=== PATIENT | female | born 1965 | race Caucasian/White ===

== ENCOUNTER 2023-04-27 20:02 | Emergency (ER) | payer OTHER, SELFPAY ==
[2023-04-27 20:19] VITALS: BP 133/90; PULSE 85; RESP 16; TEMP 36.8; O2SAT 98
--- NOTE | 2023-04-27 20:42 | ED.GENADULT ---
HPI - General Adult General Chief complaint: Fever Stated complaint: fever Time Seen by Provider: 04/27/23 20:30 Source: patient Mode of arrival: ambulatory Limitations: no limitations History of Present Illness HPI narrative: This is a 57-year-old female who presents to the ED with chief complaint of dysuria for the past several days. Patient was seen at [facility] urgent care last night and was given prescription for cefdinir. She is returning to the ER tonight because she had a temperature of 101 ?F today at home. She states she took Tylenol which helped with the fever. Upon triage her temperature is 98.3 ?F. Denies any further complaints. Denies nausea, vomiting, chest pain, shortness of breath, rhinorrhea, congestion, sore throat, abdominal pain, vaginal symptoms. Related Data Allergies Allergy/AdvReac Type Severity Reaction Status Date / Time No Known Allergies Allergy Unverified 11/22/21 13:57 Exam Narrative: GENERAL: Well-appearing, well-nourished, and in no acute distress. HEAD: Normocephalic, atraumatic. EYES: PERRLA and EOMI. ENT: Nares clear, no rhinorrhea or epistaxis. Mucous membranes moist. Oropharynx without tonsillar hypertrophy exudate or other lesions. NECK: Supple. No adenopathy or masses. CHEST: No respiratory distress. Clear to auscultation. No wheezes rales or rhonchi HEART: Regular rate and rhythm. No murmur heard. Normal peripheral pulses. ABDOMEN: Negative flank tenderness bilaterally. Soft, nontender, nondistended, normal active bowel sounds. MSK: Normal range of motion. No edema. SKIN: Warm, dry, no rash. NEURO: Alert and oriented x3. No focal deficits. PSYCH: Normal mood and affect. Course Vital Signs Vital signs: Vital Signs Temperature 98.3 F 04/27/23 20:19 Pulse Rate 85 04/27/23 20:19 Respiratory Rate 16 04/27/23 20:19 Blood Pressure 133/90 04/27/23 20:19 Pulse Oximetry 98 04/27/23 20:19 Oxygen Delivery Room Air 04/27/23 20:19 Temperature 98.3 F 04/27/23 20:19 Pulse Rate 80 04/27/23 22:11 Respiratory Rate 18 04/27/23 22:11 Blood Pressure 134/91 H 04/27/23 22:11 Pulse Oximetry 99 04/27/23 22:11 Oxygen Delivery Room Air 04/27/23 20:19 Medical Decision Making MDM Narrative Medical decision making narrative: This is a 57-year-old female who presents to the ED with chief complaint of UTI symptoms and fever. Vitals are normal. She is only taken a couple of doses of her cefdinir for this recently onset UTI. Exam is benign. No flank tenderness. She is afebrile. Not having any nausea or vomiting. Urinalysis was obtained and shows 1+ blood and leuks. I prescribed Macrobid so we can have a first-line antibiotic on board along with the cefdinir. She has pending culture with her original urinalysis at [facility] and today. She will be called with those results. She is stable for discharge with simple UTI. We discussed return precautions including uncontrollable fevers, vomiting or new pain. Supportive measures for home discussed. She is agreeable with the plan for discharge and follow-up with PCP. Vital Signs Vital Signs: Vital Signs Temperature 98.3 F 04/27/23 20:19 Pulse Rate 85 04/27/23 20:19 Respiratory Rate 16 04/27/23 20:19 Blood Pressure 133/90 04/27/23 20:19 Pulse Oximetry 98 04/27/23 20:19 Oxygen Delivery Room Air 04/27/23 20:19 Temperature 98.3 F 04/27/23 20:19 Pulse Rate 80 04/27/23 22:11 Respiratory Rate 18 04/27/23 22:11 Blood Pressure 134/91 H 04/27/23 22:11 Pulse Oximetry 99 04/27/23 22:11 Oxygen Delivery Room Air 04/27/23 20:19 Lab Data Labs: Lab Results 04/27/23 Range/Units 21:00 Urine Color Yellow (Yellow) Urine Appearance Clear (Clear) Urine pH 6.0 (5.0-9.0) Ur Specific [place] 1.010 (1.001-1.035) Urine Protein Negative (Negative) mg/dL Urine Glucose (UA) Negative (Negative) mg/dL Urine Ketones Negative (Negative) mg/dL Ur Blood
[2023-04-27 21:54] LABS: Appearance Urine Clear (Clear); Bilirubin Urine Negative (Negative); Blood Urine 1+ (Negative); Color Urine Yellow (Yellow); Glucose Urine UA Negative (Negative); Ketones Urine Negative (Negative); Leukocyte Esterase Ur 1+ LEU/UL (Negative); Nitrate Urine Negative (Negative); Protein Urine Negative (Negative); Urobilinogen Urine 0.2 mg/dL (<2.0)
[2023-04-27 22:00] VITALS: BP 128/83; PULSE 79; RESP 16; O2SAT 98
[2023-04-27 22:07] LABS: WBC Urine 21-50 /hpf (0-3)
[2023-04-27 22:08] LABS: RBC Urine 0-2 /hpf (0-2); Squamous Epithelial Cell Urine Few /hpf (Few)
[2023-04-27 22:09] LABS: Add Urine Microscopic? YES; Bacteria Urine Trace /hpf
[2023-04-27 22:11] VITALS: BP 134/91; PULSE 80; RESP 18; O2SAT 99
== END 2023-04-27 22:18 | disposition home or self-care (01) ==
PROVIDERS: Emergency Provider Physician Assistant; PCP Nurse Practitioner Family
DX: N39.0 Urinary tract infection, site not specified (principal)
CPT/HCPCS: 81001; 99283

== ENCOUNTER 2024-03-03 07:02 | Emergency (ER) | payer OTHER, SELFPAY ==
--- NOTE | ~2024-03-03 | US_ITS ---
EXAMINATION: US abdomen limited DATE: 03/03/2024 09:50 INDICATION: Upper abdominal pain. TECHNIQUE: Multiple grayscale and Doppler ultrasound images of the abdomen were obtained. COMPARISON: CT abdomen and pelvis 07/07/2005 FINDINGS: The visualized portions of the head and body of the pancreas are normal. The visualized por tion of the liver is normal without focal lesion. No liver surface nodularity. There is normal flow i n main portal vein. The gallbladder is normal in size and contains sludge. No gallstones or gallbladd er wall thickening. There is no sonographic Wolfe's sign. The common duct is normal and measures 4 m m. IMPRESSION: 1. No etiology for the patient's symptoms. Reviewed, dictated and finalized at location A.
--- NOTE | ~2024-03-03 | XR_ITS ---
EXAMINATION: XR chest 1V portable DATE: 03/03/2024 08:55 INDICATION: Upper abdominal pain TECHNIQUE: frontal view of the chest was obtained. COMPARISON: Chest radiograph dated 06/23/10 FINDINGS: The lungs remain clear with no focal airspace opacities, pulmonary edema, pleural effusion or pneumot horax. The cardiomediastinal silhouette is normal. Visualized bones and soft tissues are unremarkable . IMPRESSION: 1. No acute cardiopulmonary disease. Reviewed, dictated and finalized at location B.
[2024-03-03 07:16] VITALS: BP 122/70; PULSE 72; RESP 18; TEMP 36.4; O2SAT 100
[2024-03-03 07:50] LABS: Basophils Percent Auto 0.3 % (0.2-1.2); Eosinophils Absolute Auto 0.2 K/mm3 (0-0.3); Eosinophils Percent Auto 1.5 % (0-4.4); Hemoglobin 13.9 g/dL (12.0-15.0); Immature Granulocyte Absolute 0.05 K/mm3 (0.00-0.031); Immature Granulocyte Percent A 0.4 % (0-0.5); Lymphocytes Absolute Auto 1.41 K/mm3 (0.9-3.2); Lymphocytes Percent Auto 11.2 % (18.3-44.2); Mean Corpuscular HGB Conc 33.1 g/dl (32-36); Mean Corpuscular Hemoglobin 30.4 pg (26-34); Mean Corpuscular Volume 91.9 fl (80-100); Mean Platelet Volume 11.1 fl (7.4-10.4); Monocytes Absolute Auto 0.8 K/mm3 (0.1-0.6); Monocytes Percent Auto 6.3 % (2.6-8.5); Neutrophils Absolute Auto 10.2 K/mm3 (1.3-6.7); Neutrophils Percent Auto 80.3 % (45.5-73.1); Platelet Count Result 253 k/mm3 (150-375); Red Blood Count 4.57 M/mm3 (4.2-5.4); Red Cell Distribution Width 13.8 % (11.5-14.5); White Blood Count 12.6 K/mm3 (4.5-10.0)
[2024-03-03 08:01] LABS: Alanine Aminotransferase 35 U/L (6-35); Albumin Level 4.4 g/dL (3.5-5.1); Alkaline Phosphatase 59 U/L (38-126); Anion Gap 9 mmol/L (4-12); Aspartate Amino Transferase 53 U/L (14-36); Bilirubin,Total 0.6 mg/dL (0.2-1.3); Blood Urea Nitrogen 14 mg/dL (7-17); Calcium 9.7 mg/dL (8.4-10.2); Carbon Dioxide 23 mmol/L (22-30); Chloride 108 mmol/L (98-107); Estimated CRCL calculation 79 ml/min; Estimated Glomerular Filt Rate > 60; Glucose 132 mg/dL (65-110); Lipase 156 U/L (23-300); Potassium 3.4 mmol/L (3.4-5.0); Sodium 140 mmol/L (137-145)
--- NOTE | 2024-03-03 08:17 | ECG_ITS ---
SEE SCANNED COPY FOR CONFIRMED REPORT MTDD
--- NOTE | 2024-03-03 08:31 | ED.ABDPAIN ---
HPI - Abdominal Pain General Chief Complaint: Abdominal Pain Stated Complaint: abd pain Time Seen by Provider: 03/03/24 07:36 History of Present Illness HPI narrative: 58-year-old female presented to the emergency department for evaluation of upper abdominal pain associated nausea without vomiting. Patient reports that symptoms started last night. Patient denies any radiation of the pain to her chest neck or back. Patient did take some antacids last night and states that they did not help immediately but upon arrival emergency department patient states that all her symptoms have resolved. Patient denies any prior history of gallbladder disease and denies any prior history coronary disease. Related Data Home Medications Medication Instructions Recorded Confirmed fluoxetine 40 mg capsule 40 mg PO DAILY 06/03/23 07/16/23 levothyroxine 125 mcg tablet 125 mcg PO DAILY 06/03/23 07/16/23 Allergies Allergy/AdvReac Type Severity Reaction Status Date / Time No Known Allergies Allergy Verified 07/16/23 14:25 Review of Systems Review of Systems: All systems reviewed & are unremarkable except as noted in HPI and below PMFSH Social History Social History (System 11/22/21 @ 13:57 by Geovany Rosales) Years smoked: 4 Smoking status: Former smoker Alcohol intake: current Living arrangements: with family Spiritual care concerns: No Exam Narrative: APPEARANCE: Well appearing, no pain, no distress, well-nourished. HEAD: normocephalic, atraumatic. EYES: PERRLA/EOMI, conjunctivae clear. NOSE: Normal no drainage EARS:TMS clear with good light reflex. THROAT: Pharynx clear, no exudate. NECK: Supple. No adenopathy, no masses. RESPIRATORY: Airway patent, respirations nonlabored. Clear to auscultation bilaterally, no rales, rhonchi, wheezing. CARDIOVASCULAR: Regular rate and rhythm without murmurs rubs or gallops. ABDOMINAL: Soft, nontender, nondistended, normal bowel sounds MUSCULOSKELETAL: Moves all extremities. Strength/ROM intact, No edema, No calf tenderness. NEURO: Alert. Cranial nerves II through XII intact. Grossly intact SKIN: Warm, dry. Normal Color Course Course Emergency Course: Patient was pain-free in the emergency department Vital Signs Vital signs: Vital Signs Temperature 97.6 F 03/03/24 07:16 Pulse Rate 72 03/03/24 07:16 Respiratory Rate 18 03/03/24 07:16 Blood Pressure 122/70 03/03/24 07:16 Pulse Oximetry 100 03/03/24 07:16 Oxygen Delivery Room Air 03/03/24 07:16 Temperature 97.6 F 03/03/24 07:16 Pulse Rate 77 03/03/24 11:00 Respiratory Rate 16 03/03/24 11:00 Blood Pressure 122/73 03/03/24 11:00 Pulse Oximetry 98 03/03/24 11:00 Oxygen Delivery Room Air 03/03/24 07:16 MDM - Abdominal Pain MDM Narrative Medical decision making narrative: 58-year-old female presents emergency department for evaluation upper abdominal pain. Patient reports pain is resolved at time of examination patient has no tenderness to palpation. Patient is afebrile with a minor leukocytosis of 12.6 stable hemoglobin, mild elevation of AST but ALT alk-phos lipase and T bili are normal. Patient was treated with IV Protonix. EKG shows no evidence of acute STEMI. Patient did have mild elevation of her AST with no elevation of alk-phos ALT T bili or lipase. Ultrasound was ordered for the possibility underlying gallbladder etiology an ultrasound was negative. Patient was encouraged to follow a bland diet and was also encouraged to take Prilosec for the next 14 days. Patient also encouraged to have follow-up with GI Differential Diagnosis Differential diagnosis: Likely abdominal pain, calculus of kidney, constipation and gastroenteritis Lab Data Attestation: I reviewed the patient's lab results. 03/03/24 07:43 03/03/24 07:43 Labs: Lab Results 03/03/24 03/03/24 Range/Units 07:43 08:58 WBC 12.6 H (4.5-10.0) K/mm3 RBC 4.57 (4.2-5.4) M
[2024-03-03] MEDS: PANTOPRAZOLE SODIUM IV 40 MG VIAL IV PUSH (08:52)
[2024-03-03 09:00] VITALS: BP 133/82; PULSE 76; RESP 16; O2SAT 100
[2024-03-03 09:09] LABS: Appearance Urine Clear (Clear); Bilirubin Urine Negative (Negative); Blood Urine Negative (Negative); Color Urine Yellow (Yellow); Glucose Urine UA Negative (Negative); Ketones Urine Negative (Negative); Leukocyte Esterase Ur Negative LEU/UL (Negative); Nitrate Urine Negative (Negative); Protein Urine Negative (Negative); Specific Grav Ur 1.021 (1.001-1.035); Urobilinogen Urine 0.2 mg/dL (<2.0)
[2024-03-03 09:23] LABS: Troponin I < 0.012 ng/mL (0.000-0.034)
[2024-03-03 09:52] LABS: Add Urine Microscopic? NO
[2024-03-03 11:00] VITALS: BP 122/73; PULSE 77; RESP 16; O2SAT 98
== END 2024-03-03 11:03 | disposition home or self-care (01) ==
PROVIDERS: Emergency Provider Emergency Medicine; PCP Nurse Practitioner Family
DX: R10.10 Upper abdominal pain, unspecified (principal); Z87.891 Personal history of nicotine dependence
CPT/HCPCS: 36415; 71045; 76705; 80053; 81003; 83690; 84484; 85025; 93005; 96374; 99284; C9113

== ENCOUNTER 2024-11-19 01:53 | Day surgery (SDC) | payer OTHER, SELFPAY ==
[2024-11-06 11:19] VITALS: BMI 36.6
--- OUTSIDE RECORDS SUMMARY | 2024-11-19 01:56 | XMS_ITS | Data Portability ---
Author Organization [facility], Main Office Address [address] [place] [address] Assessment Encounter Date Assessment Date Assessment LastModified by Organization Details LastModified Time 05/01/2023 05/01/2023 D/w pt about her findings and further plan of care. Recent ED records reviewed. Will send urine for C&S. Will refer pt to Uro. Meds as directed. Very good liquid and cranberry juice intake explained. OTC pain meds as directed prn with food. Educated about alarming symptoms to monitor at home and call us back or get checked in ED. F/u with PCP as directed. [email or web address] Not available 05/01/2023 13:10:43 06/27/2023 06/27/2023 D/w pt about her findings and further plan of care. Meds as directed. OTC symptomatic Rx explained in detail. Very good liquid intake explained. Proper hand hygiene explained. Educated about alarming symptoms to monitor at home and call us back Or get checked in ED if any concerns. F/u as directed. [email or web address] Not available 06/27/2023 11:14:06 08/18/2024 08/18/2024 Declines annual labs Flu shot: 05/2024 COVID vaccines: x3 Tdap: 05/2024 Mammogram: ordered Colonoscopy: 9 year ago, mother has colon cancer [email or web address] Not available 08/18/2024 15:08:02 Plan of Treatment Reminders Order Date Submit Date Provider Last Modified By Organization Details Last Modified Time Details Appointments None recorded. Lab lipid panel, serum 2022 023 [facility], [address] [place], [address], 3 08:41:33 CBC w/ auto diff [address], [address] [place], [address], 3 08:41:33 CMP, serum or plasma [address], [address] [place], [address], 3 08:41:33 HbA1c (hemoglobin A1c), blood [address], [address] [place], [address], 3 08:41:34 TSH, serum, reflex free T4 [address], [address] [place], [address], 3 08:41:33 culture, urine 2022 023 [facility], [address] [place], [address], 3 08:51:27 TSH, serum, reflex free T4 [address] (Lab), [address] [place], [address], 3 08:15:30 lipid panel, serum [address] (Lab), [address] [place], [address], 3 08:15:40 rapid flu (A+B) 2022 023 [facility], [address] [place] [address], [place], [address], 3 17:47:23 rapid strep group A, throat [address] [facility], [address] [facility], [place], [address], 3 17:46:49 HbA1c (hemoglobin A1c), blood 2023 024 [employer] [facility], [address], [place], [address], 4 07:35:07 TSH + free T4, serum 2023 024 [employer] [facility], [address], [place], [address], 4 07:35:03 T3, free, serum or plasma 2023 024 [employer] [facility], [address], [place], [address], 4 07:35:06 Referral gastroenter ologist referral - colonoscopy needed. Last in 2014. Mother +colon cancer. 2022 023 [email or web address] Omi Petersen MD, [address] [facility] [address], [address], [place], [address], 3 20:32:[address] referral - Would like full body skin check. Has lesion right shoulder and posterior right knee, too. 2022 023 [email or web address] [facility], [address], [place], [address], 3 09:52:40 urologist referral 2022 023 [email or web address] Vaughn Inman MD, [address] [facility], [facility] [address], [place], [address], 3 15:54:55 gastroenter ologist referral - Please call patient to schedule an appointment . Thank you. [email or web address] [place] [address] [facility], [address], [address], [place], [address], 4 08:52:23 Procedures None recorded. Surgeries None recorded. Imaging MAMMO, screening, bilateral 2022 023 [email or web address] 256 Not available 3 09:42:14 MAMMO, screening, digital, bilateral - *Please call pt to schedule* 2023 024 [email or web address] 256 [facility], [address], [place], [address], 4 09:38:18 Medication Orders phenazopyri dine 200 mg tablet 2022 023 [email or web address] [facility] [id number], [address], 3 11:16:42 Macrobid 100 mg capsule 2022 023 [email or web address] [facility] [id number], [address], 3 08:39:04 azithromyci n 250 mg tablet 2022 023 [facility] [id number], [address], 4 16:11:48 Patient TargetsNo targets recorded. Patient Instructions Encounter Date Encounter Id Patient Instructions Last Modified By Organization Details Last Modified Time 03/20/2023 [id number] mo fu labs, weight, skin lesion, lipid, thyroid, anxiety. 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 Has lesion right shoulder and posterior right knee, too. Referring Physician: Kristen Olivarez, [facility], Encounter Date: 03/20/2023 Help Aid Referral for Family history of cancer of colon colonoscopy needed. Last in 2014. Mother +colon cancer. Referring Physician: Kristen Olivarez, [facility], Encounter Date: 03/20/2023 Urologist Referral for Urina ry incontinence Referring Physician: Manfred Burch [facility], Encounter Date: 05/01/2023 Help Aid Referral for Screening for malignant neoplasm of colon Please call patient to schedule an appointment. Thank you. Referring Physician: Aracelis Waters, [facility], Encounter Date: 08/18/2024 Results Created Date Observation Date Name Description Value Unit Range Abnormal Flag Note LastModifiedBy Organization Detail LastModifiedTime 06/11/2006/12/2023 LIPID PANEL , STAND TURNER cholesterol, total 229 mg/dL <200 high Not Available [employer] [facility] [address] [place], [place] [address], [address], 06/12/2023 10:42:25 06/11/2006/12/2023 LIPID PANEL , STAND TURNER HDL cholesterol 63 mg/dL > or = 50 normal Not Available [employer] [address] [place], [address], 06/12/2023 10:42:25 06/11/20 23 06/12/2023 LIPID PANEL , STAND TURNER triglyceride s 160 mg/dL <150 high Not Available [facility] [address] [place], [address], 06/12/2023 10:42:25 06/11/2006/12/2023 LIPID PANEL , STAND TURNER LDL-choleste rol 136 mg/dL _(ashley c) high Refer ence range : <100 Barron able range <100 mg/dL for prima ry preve ntion ; <70 mg/dL for patie nts with CHD or diabe tic patie nts with > or = 2 CHD risk facto rs. LDL-C is now calcu lated using the [facility] n-Hop kins mariela harris n, which is a valid ated novel marilu liz accur acy than the Fried ulisses equat ion in the estim ation of LDL-C . Ivanna brock SS et al. CAM. 2013; 310(1 9): 2061- 2068 (http ://ed ucati on.Qu Casey Podotrees. com/f aq/FA Q164) Not Available [facility] [address] [place], [address], 06/12/2023 10:42:25 06/11/2006/12/2023 LIPID PANEL , STAND TURNER chol/HDLC ratio 3.6 (calc ) <5.0 normal Not Available [facility] [address], [place], [address], 06/12/2023 10:42:25 06/11/20 23 06/12/2023 LIPID PANEL , STAND TURNER non HDL cholesterol 166 mg/dL _(ashley c) <130 high For patie nts with diabe lázaro plus 1 major ASCVD risk facto r, treat ing to a non-H DL-C goal of <100 mg/dL (LDL- C of <70 mg/dL ) is consi dered a thera peuti c optio n. Not Available [facility] [address] [place], [address], 06/12/2023 10:42:25 06/11/2006/12/2023 COMPR EHENS MANJIT METAB OLIC PANEL glucose 104 mg/dL 65-99 high Fasti ng refer ence inter hamlet For someo ne witho ut known diabe lázaro, a gluco se value betwe en 100 and 125 mg/dL is consi stent with predi abete s and shoul d be confi rmed with a follo w-up test. Not Available [facility] [address] [place], [address], 06/12/2023 10:42:26 06/11/20 23 06/12/2023 COMPR EHENS MANJIT METAB OLIC PANEL urea nitrogen (BUN) 16 mg/dL 7-25 normal Not Available [address], [address], 06/12/2023 10:42:26 06/11/20 23 06/12/2023 COMPR EHENS MANJIT METAB OLIC PANEL creatinine 0.79 mg/dL 0.50-1 .03 normal Not Available [address], [address], 06/12/2023 10:42:26 06/11/20 23 06/12/2023 COMPR EHENS MANJIT METAB OLIC PANEL eGFR 87 mL/mi n/1.7 3m2 > or = 60 normal Not Available [address], [address], 06/12/2023 10:42:26 06/11/20 23 06/12/2023 COMPR EHENS MANJIT METAB OLIC PANEL BUN/creatini ne ratio SEE NOTE: (calc ) 6-22 Not Repor bg: BUN and Creat inine are withi n refer ence range . Not Available [address], [address], 06/12/2023 10:42:26 06/11/20 23 06/12/2023 COMPR EHENS MANJIT METAB OLIC PANEL sodium 138 mmol/ L 135-14 6 normal Not Available [address] [place], [address], 06/12/2023 10:42:26 06/11/20 23 06/12/2023 COMPR EHENS MANJIT METAB OLIC PANEL potassium 4.3 mmol/ L 3.5-5. 3 normal Not Available [address] [place], [address], 06/12/2023 10:42:26 06/11/20 23 06/12/2023 COMPR EHENS MANJIT METAB OLIC PANEL chloride 105 mmol/ L 98-110 normal Not Available [address], [address], 06/12/2023 10:42:26 06/11/20 23 06/12/2023 COMPR EHENS MANJIT METAB OLIC PANEL carbon dioxide 23 mmol/ L 20-32 normal Not Available [address], [address], 06/12/2023 10:42:26 06/11/20 23 06/12/2023 COMPR EHENS MANJIT METAB OLIC PANEL calcium 9.4 mg/dL 8.6-10 .4 normal Not Available [address], [address], 06/12/2023 10:42:26 06/11/20 23 06/12/2023 COMPR EHENS MANJIT METAB OLIC PANEL protein, total 7.1 g/dL 6.1-8. 1 normal Not Available [address], [address], 06/12/2023 10:42:26 06/11/20 23 06/12/2023 COMPR EHENS MANJIT METAB OLIC PANEL albumin 4.4 g/dL 3.6-5. 1 normal Not Available [address], [address], 06/12/2023 10:42:26 06/11/20 23 06/12/2023 COMPR EHENS MANJIT METAB OLIC PANEL globulin 2.7 g/dL_ (calc ) 1.9-3. 7 normal Not Available [address], [address], 06/12/2023 10:42:26 06/11/20 23 06/12/2023 COMPR EHENS MANJIT METAB OLIC PANEL albumin/glob ulin ratio 1.6 (calc ) 1.0-2. 5 normal Not Available [address], [address], 06/12/2023 10:42:26 06/11/2006/12/2023 COMPR EHENS MANJIT METAB OLIC PANEL bilirubin, total 0.5 mg/dL 0.2-1. 2 normal Not Available [address], [address], 06/12/2023 10:42:26 06/11/20 23 06/12/2023 COMPR EHENS MANJIT METAB OLIC PANEL alkaline phosphatase 61 U/L 37-153 normal Not Available [facility] [employer] [address], [address], 06/12/2023 10:42:26 06/11/20 23 06/12/2023 COMPR EHENS MANJIT METAB OLIC PANEL AST 17 U/L 10-35 normal Not Available [address], [address], 06/12/2023 10:42:26 06/11/20 23 06/12/2023 COMPR EHENS MANJIT METAB OLIC PANEL ALT 23 U/L 6-29 normal Not Available [address], [address], 06/12/2023 10:42:26 06/11/20 23 06/12/2023 TSH TSH 0.29 mIU/L 0.40-4 .50 low Not Available [address], [address], 06/12/2023 10:42:27 06/11/2006/12/2023 HEMOG LOBIN A1C hemoglobin A1C 5.7 %_of_ total _HGB <5.7 high For fallon ulloa ut known diabe lázaro, a hemog lobin A1c value betwe en 5.7% and 6.4% is consi stent with predi abete s and shoul d be confi rmed with a follo w-up test. For someo ne with known diabe lázaro, a value <7% indic ates that their diabe lázaro is well contr olled . A1c targe ts shoul d be indiv idual ized based on durat ion of diabe lázaro, age, comor bid condi tions , and other consi derat ions. This assay resul t is consi stent with an incre ased risk of diabe lázaro. Curre ntly, no conse nsus exist s regar ding use of hemog lobin A1c for diagn osis of diabe lázaro for child ayesha. Not Available [facility] [address] [place], [address], 06/12/2023 10:42:27 07/01/20 23 07/01/2023 rapid strep group A, throa t STREP A negati ve Not Available [address], [address], 06/27/2023 11:16:14 07/01/20 23 07/01/2023 rapid flu (A+B) Flu A negati ve Not Available [address], [address], 06/27/2023 11:16:25 07/01/20 23 07/01/2023 rapid flu (A+B) Flu B negati ve Not Available [address], [address], 06/27/2023 11:16:25 11/08/19 24 11/09/2023 TSH W/REF DEB TO FT4 TSH w/reflex to FT4 18.80 mIU/L 0.40-4 .50 high Not Available [facility] [address] [place], [address], 11/09/2023 06:00:12 11/08/19 24 11/09/2023 T4, FREE T4, free 0.8 NG/dL 0.8-1. 8 normal Not Available [address], [address], 11/09/2023 06:00:14 08/20/2008/21/2024 TSH+F REE T4 TSH 13.99 mIU/L 0.40-4 .50 high Not Available [facility] [address], [address], 08/21/2024 07:35:03 08/20/20 24 08/21/2024 TSH+F REE T4 T4, free 1.3 NG/dL 0.8-1. 8 normal Not Available [facility] [address], [address], 08/21/2024 07:35:03 08/20/20 24 08/21/2024 T3, FREE T3, free 2.9 pg/mL 2.3-4. 2 normal Not Available [facility] [address], [address], 08/21/2024 07:35:06 08/20/2008/21/2024 HEMOG LOBIN A1C hemoglobin A1C 5.9 %_of_ total _HGB <5.7 high For someo ne witho ut known diabe lázaro, a hemog lobin A1c value betwe en 5.7% and 6.4% is consi stent with predi abete s and shoul d be confi rmed with a follo w-up test. For someo ne with known diabe lázaro, a value <7% indic ates that their diabe lázaro is well contr olled . A1c targe ts shoul d be indiv idual ized based on durat ion of diabe lázaro, age, comor bid condi tions , and other consi derat ions. This assay resul t is consi stent with an incre ased risk of diabe lázaro. Curre ntly, no conse nsus exist s regar ding use of hemog lobin A1c for diagn osis of diabe lázaro for child ayesha. Not Available [facility] [address] [place], [address], 08/21/2024 07:35:07 08/08/20 23 08/01/2023 lipid panel , serum No observ ation record ed. [facility] [address], [place], [address], 08/16/2023 08:15:39 Result Notes None recorded. Problems Name Problem SNOMED Code Status Onset Date Resolution Date Notes Provider Name and Address Organization Details Recorded Time Amenorrhea 32436284 Active Not Available [facility] 3 01:25:53 Acute sinusitis 58629520 Active Not Available [facility] 3 01:25:53 Heartburn 08095401 Active 2019 Not Available [facility] 3 01:25:53 Anxiety disorder 794021081 Active 2019 Not Available [facility] 3 01:25:53 Plantar fasciitis 571643654 Active 2017 Not Available [facility] 3 01:25:53 Mixed anxiety and depressive disorder 524536384 Active 2017 Not Available [facility] 3 01:25:53 Atopic dermatitis 89991857 Active 2018 Not Available [employer] 3 01:25:53 Headache 51383659 Active Not Available [facility] 3 01:25:53 Anemia 895957435 Active 2019 Not Available [facility] 3 01:25:53 History of anemia 784746586 Active 2017 Not Available [facility] 3 01:25:54 Depressive disorder 57905104 Active Not Available [facility] 3 01:25:54 Arthritis 4760598 Active 2019 Not Available [facility] 3 01:25:54 Osteoarthriti s 395332583 Active 2018 Not Available [facility] 3 01:25:54 Hypothyroidis m 63202437 Active Not Available [facility] 3 01:25:54 Obese 300419028 Active 2017 Not Available [facility] 3 01:25:54 Bunion 365329425 Active 2019 Not Available [facility] 3 01:25:54 Anxiety 08826268 Active Not Available [facility] 3 01:25:54 Hyperlipidemi a 60112800 Active 2021 Not Available [facility] 3 01:25:55 Sleep apnea 60344441 Active 2021 Not Available [facility] 3 01:25:55 Fatigue 81400590 Active 2017 Not Available [facility] 3 01:25:55 Skin lesion 67837306 Active 2022 Kristen Olivarez NP [address], [address], [place], [address] , [email or web address] [facility] 3 08:35:07 Urinary tract infectious disease 65599118 Active 2022 Manfred Burch MD [address], [address], [place], [address] , [employer] [facility] 3 12:27:43 Urinary incontinence 161438492 Active 2022 Manfred Burch MD [address], [address], [place], [address] , [employer] [facility] 3 12:40:10 Obesity 805725093 Active 2022 Manfred Burch MD [address], [address], [place], [address] , [employer] [facility] 3 13:10:18 Candidiasis of skin 59125515 Active 2022 Kristen Olivarez NP [address], [address], [place], [address] , [email or web address] [facility] 3 16:28:50 Candidiasis of vagina 56807797 Active 2022 Kritsen Olivarez NP [address], [address], [place], [address] , [facility] 3 16:28:57 Vaginal irritation 526626126 Active 2022 Kristen Olivarez NP [address] [facility], [place] [address], [place], [address] , [facility] 3 08:39:14 Sore throat 692099324 Active 2022 Manfred Burch MD [address] [facility], [address], [address] , [facility] 3 11:14:28 Bronchitis 07448144 Active 2022 Manfred Burch MD [address] [facility], [place] [address], [place], [address] , [facility] 3 11:14:42 Nasal congestion 74560721 Active 2022 Manfred Burch MD [address], [address] , [facility] 3 11:16:19 Prediabetes 225125821 Active 2023 AMANDA Sharp [address] [facility], [address], [address] , [facility] [employer] [facility] 4 15:08:41 Notes:allergies parathyroid disease thyroid disease Problem Notes None recorded. Procedures Surgical History Date Name Laterality Status Provider Name and Address Organization Details Recorded Time 8 Exc h-f-nk-sp b9+bhavna 1.1-2 completed Not Available [facility] 12/19/2022 01:12:49 completed Not Available [facility] 0 12/19/2022 01:12:49 Hernia Repair completed Not Available [facility] 12/19/2022 01:12:49 Hernia Repair completed Not Available [facility] 12/19/2022 01:12:49 Imaging Results Imaging Date Name Status LastModified by [facility] Details LastModified Time 08/01/2023 lipid panel, serum completed [facility] 2 [facility] [address], [place], [address], 08/16/2023 08:15:39 Procedure Notes None recorded. Medical Equipment None Reported. Allergies No known drug allergies Medications Name Sig Start Date Stop Date Status Note LastModified by Organization Details LastModified Time fluoxetin e 40 mg capsule TAKE 1 CAPSULE BY MOUTH EVERY DAY active Not Available Not Available No t Available cefazolin 1 gram solution for injection Take 1 g by injectio n route for 1 day. 07/03 completed Not Available Not Available Not Available triamcino lone acetonide 0.5 % topical cream APPLY A THIN LAYER TO THE AFFECTED AREA(S) on foot BY TOPICAL ROUTE NIGHTLY for 7-10 days active Not Available Not Available No t Available azithromy ashley 250 mg tablet TAKE 2 TABLETS BY MOUTH TODAY, THEN TAKE 1 TABLET DAILY FOR 4 DAYS 08/12 completed Not Available Not Available Not Available fluconazo le 150 mg tablet TAKE 1 TABLET BY MOUTH EVERY DAY ONE DOSE 08/12 completed Not Available Not Available Not Available valacyclo vir 1 gram tablet Take 1 tablet 3 times a day by oral route. active Not Available Not Available No t Available phenazopy ridine 200 mg tablet TAKE 1 TABLET BY MOUTH EVERY 8 HOURS NEEDED FOR 7 DAYS 06/27 completed Not Available Not Available Not Available ciproflox acin 500 mg tablet TAKE 1 TABLET BY MOUTH TWICE A DAY FOR 7 DAYS 08/12 completed Not Available Not Available Not Available sulfameth oxazole 800 mg-trimet hoprim 160 mg tablet Take 1 tablet every 12 hours by oral route for 10 days. 07/03 completed Not Available Not Available Not Available levothyro xine 75 mcg tablet TAKE 1 TABLET BY MOUTH EVERY DAY active Not Available Not Available No t Available levothyro xine 100 mcg tablet TAKE ONE TABLET BY MOUTH ONE TIME DAILY 02/10 completed Not Available Not Available Not Available alprazola m 0.25 mg tablet Take 1 tablet 3 times a day by oral route as directed for 30 days. 11/05 completed PRN Not Available Not Available Not Available levothyro xine 125 mcg tablet TAKE 1 TABLET BY MOUTH EVERY DAY 2023 active Not Available Not Available Not Avai lable Synthroid 50 mcg tablet 06/29 completed Not Available Not Available Not Available Cheratuss in AC 10 mg-100 mg/5 mL oral liquid 06/29 completed Not Available Not Available Not Available ondansetr on 4 mg disintegr ating tablet DISSOLVE 1 TABLET BY MOUTH EVERY 8 HOURS NEEDED FOR NAUSEA AND VOMITING 08/18 completed Not Available Not Available Not Available cefdinir 300 mg capsule TAKE 1 CAPSULE BY MOUTH 2 TIMES A DAY FOR 5 DAYS. 05/01 completed Not Available Not Available Not Available fluoxetin e 20 mg capsule 1 cap po daily 02/09 completed Not Available Not Available Not Available levothyro xine 112 mcg tablet TAKE 1 TABLETBY MOUTH EVERY DAY IN THE MORNING 08/21 completed Not Available Not Available Not Available amoxicill in 875 mg-potass ium clavulana te 125 mg tablet TAKE 1 TABLET BY MOUTH TWICE A DAY FOR 7 DAYS 08/12 completed Not Available Not Available Not Available Relpax 40 mg tablet Take 1 tablet as needed by oral route. active samples given Not Available Not Available Not Available nitrofura ntoin monohydra te/macroc rystals 100 mg capsule TAKE 1 CAPSULE BY MOUTH EVERY 12 HOURS DIRECTED FOR 5 DAYS 06/14 completed Not Available Not Available Not Available omeprazol e 20 mg tablet,de layed release TAKE 1 TABLET BY MOUTH DAILY FOR 14 DAYS 08/18 completed Not Available Not Available Not Available Suprep Bowel Prep Kit 17.5 gram-3.13 gram-1.6 gram oral solution USE DIRECTED active Not Available Not Available No t Available Fluvirin 0790-9532 45 mcg (15 mcg x 3)/0.5 mL intramusc ular suspensio n active Not Available Not Available Not Available Vitals Date Recorded Body weight Body mass index (BMI) Body height Body temperature Heart rate Respiratory rate Oxygen saturation Oxygen saturation in Arterial blood by Pulse oximetry Systolic blood pressure Diastolic blood pressure Provider Name and Address Organization Details Last Updated DateTime 3 74397.7 g 39.6 kg/m2 157.48 cm 96 [degF] 72 /min 16 /min 96 % 96 % 126 mm[Hg] 90 mm[Hg] Kristen Jain RN [place] [employer] 3 08:32:20 Date Recorded Body height Body mass index (BMI) Body weight Body temperature Heart rate Oxygen saturation Oxygen saturation in Arterial blood by Pulse oximetry Provider Name and Address Organization Details Last Updated DateTime 3 157.48 cm 39.6 kg/m2 13715.7 g 98.4 [degF] 78 /min 97 % 97 % Jazz Chaves MA [facility] [employer] [facility] 3 12:21:20 Date Recorded Systolic blood pressure Diastolic blood pressure Provider Name and Address Organization Details Last Updated DateTime 05/01/2023 143 mm[Hg] 86 mm[Hg] Manfred Burch MD [address], [address], [place], [address] [employer] [facility] 05/01/2023 12:27:58 Date Recorded Body height Body mass index (BMI) Body weight Body temperature Heart rate Oxygen saturation Oxygen saturation in Arterial blood by Pulse oximetry Systolic blood pressure Diastolic blood pressure Provider Name and Address Organization Details Last Updated DateTime 3 157.48 cm 39.2 kg/m2 70992.4 7 g 97.3 [degF] 79 /min 95 % 95 % 125 mm[Hg] 86 mm[Hg] Jazz Chaves [facility] [employer] [facility] 3 09:39:18 Date Recorded Body height Body mass index (BMI) Body weight Body temperature Heart rate Respiratory rate Oxygen saturation Oxygen saturation in Arterial blood by Pulse oximetry Provider Name and Address Organization Details Last Updated DateTime 3 157.48 cm 39.3 kg/m2 32111.7 1 g 97.9 [degF] 66 /min 16 /min 97 % 97 % Pino Bryant [facility] [employer] 3 11:10:37 Date Recorded Systolic blood pressure Diastolic blood pressure Provider Name and Address Organization Details Last Updated DateTime 06/27/2023 142 mm[Hg] 90 mm[Hg] Manfred Burch MD [address], [address], [place], [address], [facility] [employer] [facility] 06/27/2023 11:12:53 Date Recorded Body weight Body mass index (BMI) Body height Body temperature Heart rate Respiratory rate Oxygen saturation Oxygen saturation in Arterial blood by Pulse oximetry Systolic blood pressure Diastolic blood pressure Provider Name and Address Organization Details Last Updated DateTime 4 17252.4 7 g 39.2 kg/m2 157.48 cm 97 [degF] 75 /min 20 /min 96 % 96 % 160 mm[Hg] 98 mm[Hg] Kristen Jain RN [facility] [employer] [facility] 14:51:28 Social History Question Answer Notes LastModified by Organizat ion Details LastModified Time Tobacco Smoking Status Former Smoker Jazz Chaves MA [facility], [facility] [employer] [facility] 06/14/2023 09:35:36 Do You Have An Advance Directive? Yes Information not available 03/20/2023 What Is Your Level Of Alcohol Consumption? Occasional [id number] Information not available 12/19/2022 Is Blood Transfusion Acceptable In An Emergency? Yes Information not available 06/14/2023 What Is Your Level Of Caffeine Consumption? Occasional [id number] Information not available 12/19/2022 What Is Your Code Status? Full Code Information not available 06/14/2023 In The 14 Days Before Symptom Onset, Have You Had Close Contact With A Laboratory-confi rmed COVID-19 While That Case Was Ill? No Information not available 06/14/2023 In The 14 Days Before Symptom Onset, Have You Had Close Contact With A Person Who Is Under Investigation For COVID-19 While That Person Was Ill? No Information not available 06/14/2023 Are You Currently Employed? Yes Information not available 06/14/2023 What Type Of Diet Are You Following? 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 Yes Information not available 06/14/2023 When Did You Quit Smoking? 1-5yearssincelastci mary Information not available 06/14/2023 Are There Any Guns Present In Your Home? Yes Information not available 06/14/2023 Do You Use Insect Repellent Routinely? Yes Information not available 06/14/2023 Where Do You Live? SingleLevelHouse Information not available 06/14/2023 Do You Have A Medical Power Of Sales Representative Adding Machines? Yes Information not available 06/14/2023 Do You Have Any Pets? No Information not available 06/14/2023 What Is Your Relationship Status? Information not available 03/20/2023 Do You Use Your Seat Belt Or Car Seat Routinely? Yes Information not available 06/14/2023 Do You Have Smoke And Carbon Monoxide Detectors In Your Home? Yes Information not available 06/14/2023 At What Age Did You Start Smoking Tobacco? 20 Information not available 06/14/2023 Are There Any Smokers In Your House? No Information not available 06/14/2023 Do You Participate In Social Media? Yes Information not available 06/14/2023 Do You Feel Stressed (tense, Restless, Nervous, Or Anxious, Or Unable To Sleep At Night)? [id number] Information not available 06/14/2023 Do You Use Any Illicit Or Recreational Drugs? No Information not available 06/14/2023 Do You Use Sunscreen Routinely? Yes Information not available 06/14/2023 Has Tobacco Cessation Counseling Been Provided? No Information not available 06/14/2023 Have You Recently Traveled Abroad? No Information not available 06/14/2023 Do You Or Have You Ever Used Any Other Forms Of Tobacco Or Nicotine? No Information not available 06/14/2023 Sex: Unknown Functional Status Question Answer Note LastModified by Organization D etails LastModified Time What is your exercise level? None Information not available 03/20/2023 Mental Status None recorded. Family History Relationship Description Onset Age of this Age Resolved Age Notes LastModified by Organization Details LastModified Time Father Alzheimer's disease 81 Not available 2022 09:35:36 Father Malignant neoplasm of skin 65 Not available 2022 09:35:36 Mother Heart disease [id number] Not available 12/19/2022 01:12:56 Mother Diabetes mellitus [id number] Not available 12/19/2022 01:12:56 Mother Malignant tumor of colon Not available 2022 09:35:36 Maternal Grandmother Heart disease [id number] Not available 12/19/2022 01:12:56 Paternal Grandfather Diabetes mellitus [id number] Not available 12/19/2022 01:12:56 Notes:cancer- dad Medical History Condition Response BLINDNESS N RHEUMATIC FEVER N KIDNEY STONES N BLADDER PROBLEMS N MRSA N OTHER # 1 N POLIO N LUNG DISEASE/DISORDER N HISTORY OF DRUG ABUSE N COPD N RADIATION / CHEMOTHERAPY N Other # 2 N BLOOD DISEASES N SURGERY N EAR OR HEARING PROBLEMS N MUMPS N SHINGLES N FEMALE PROBLEMS / INFECTIONS N DEPRESSION (INCLUDING POST ) Y BOWEL PROBLEMS N STROKE/TIA N THYROID DISEASE Y ULCERS N BENIGN PROSTATIC HYPERPLASIA N MEASLES N CERVICALGIA N HYPOTENSION N TB SKIN TEST N MYOCARDIAL INFARCTION N OBESITY N PARAPELGIA N GERD/NAUSEA N ANEURYSM N URINARY/BLADDER/KIDNEY PROBLEMS N CORONARY ARTERY DISEASE (CAD) N MENIERE'S DISEASE N ADDICTION CONCERNS N ENDOMETRIOSIS N USE OF BLOOD THINNERS N SKIN PROBLEMS N EMPHYSEMA N GASTROINTESTINAL DISORDER N MUSCLE,JOINT OR BONE PROBLEMS N GASTROINTESTINAL BLEEDING N BLOOD CLOTS N ASTHMA N CATARACTS N ERECTILE DYSFUNCTION N GI PROBLEMS N CHF N Low Testosterone N NEUROPATHY N INFERTILITY N AIDS/HIV N FRACTURES N CHEMOTHERAPY / RADIATION N VISION/EYE PROBLEMS N LIVER DISEASE N MALE HYPOGONADISM N HYPERTENSION N TOURETTE'S N ANXIETY DISORDER Y BLOOD TRANSFUSION N ANEMIA/BLOOD DISORDER N CHRONIC EAR INFECTIONS N BRONCHITIS N TUBERCULOSIS N GLAUCOMA N FOOT PROBLEM N DIVERTICULITIS N SLEEP APNEA N CHICKENPOX N ALLERGIES/HAYFEVER N INFECTIOUS DISEASE N PROSTATE N HEART ARRHYTHMIA N INSOMNIA N HIGH CHOLESTEROL / HYPERLIPIDEMIA N EYE PROBLEMS N HYPERTHYROIDISM Y EATING DISORDER N EDEMA N CHRONIC PAIN SYNDROME N CAROTID BLOCKAGE N CONSTIPATION N BACK / NECK PROBLEMS N HAVE YOU BEEN HOSPITALIZED OR SEEN IN [facility] IN THE PAST YEAR ? N ATHEROSCLEROSIS N BREAST PROBLEMS N DIALYSIS N ECZEMA N FIBROMYALGIA N OSTEOPOROSIS N ARTHRITIS Y NO SIGNIFICANT PAST MEDICAL HISTORY N APPENDICITIS N DIABETES, TYPE N BAD TEETH N HEARTBURN / REFLUX N ADD/ADHD N AUTISM SPECTRUM DISORDER (ASD) N HEPATITIS / LIVER DISEASE N PULMONARY DISEASE N GOUT N SLEEP DISORDER N ALZHEIMER'S DISEASE N PAIN N DEMENTIA N HERPES N SEIZURES/EPILEPSY N HEADACHES/MIGRAINES Y VASCULAR DISEASE N PACEMAKER N DIZZINESS N HEART DISEASE/HEART PROBLEMS N KIDNEY DISEASE N SCARLET FEVER N MULTIPLE SCLEROSIS N DEVELOPMENTAL OR BEHAVIORAL DISORDERS N MENTAL DISORDER/ILLNESS N CANCER: SPECIFY N CARDIAC ARRHYTHMIA N PNEUMONIA N ATRIAL FIBRILLATION N Gall Stones N PULMONARY EMBOLISM N AUTOIMMUNE DISEASE N Gynecological History Statement/Question Response If Post Menopausal, Age at Menopause 50 Date of Last Mammogram 11/26/2017 Date of Last Pap Smear Date of Last Colonoscopy Most Recent Mammogram Most Recent Bone Density Obstetrics History GPAL:G 0 P 0 0 0 0 Immunizations Vaccine Type Date Status Note Provider Nam e and Address Organization Details Recorded Time Influenza, split virus, quadrivalent, preservative 1 completed Not Available [facility] 12/19/2022 01:41:34 Influenza, split virus, quadrivalent, preservative 0 completed Not Available [facility] 12/19/2022 01:41:35 Influenza, split virus, trivalent, preservative 4 completed Not Available [facility] 12/19/2022 01:41:35 Tdap 6 completed Not Available [facility] 12/19/2022 01:41:35 Influenza, split virus, quadrivalent, preservative 6 completed Not Available [facility] 12/19/2022 01:41:35 Influenza, split virus, quadrivalent, PF 9 completed Not Available [facility] 12/19/2022 01:41:35 Past Encounters Encounter ID Performer Location Encounter Start Date Encounter Closed Date Diagnosis/Indication Diagnosis SNOMED-CT Code Diagnosis ICD10 Code Diagnosis Note [id number] [address] 12/19/2021 00:00:00 12/21/2021 22:47:[id number] [address] 02/09/2022 00:00:00 02/09/2022 08:29:56 [id number] Kristen Olivarez NP [address] [address] 03/20/2023 08:14:22 03/20/2023 08:53:10 Skin lesion 45797502 L98.9 Referring to derm for full body skin check. Hyperlipidemia 89025020 E78.5 Low fat diet. Hypothyroidism 83710529 E03.9 Levothyrox ine 125 mcg po daily. 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 Screening mammography 24 099096 Z12.31 Mammogram ordered 03/20/23 Anemia screening 3862528 07 Z13.0 Diabetes m ellitus screening 024497394 Z13.1 Obese 021694788 E66.9 Low fat diet advised. Screening for malignant neoplasm of colon 842068134 Z12.11 2014 [place]. Mother with colon cancer. Family his tory of cancer of colon 231119931 Z80.0 [id number] Manfred Burch MD [address] [address] 05/01/2023 11:56:40 05/01/2023 13:54:01 Seen in emergency clinic 307809521 Z76.89 Urinary tr act infectious disease 74199854 N39.0 Urinary incontinence 165 538971 R32 Obesity 342117933 E66.9 [id number] Kristen Olivarez NP [address] [address] 06/14/2023 09:31:56 06/14/2023 10:08:40 Hyperlipidemia 27232262 E78.5 Low fat diet.Reche ck in 3 mo. Hypothyroidism 95311692 E03.9 Levothyrox ine 125 mcg po daily.TSH low on 05/2023. Reduced to levothyrox ine 112 mcg po daily and labs in 3 mo, around end of august 2023. Mixed anxi ety and depressive disorder 815155918 F41.8 Stable fluoxetine 40 mg po daily. Obese 017646273 E66.9 Low fat diet advised. Screening for malignant neoplasm of breast 606637094 Z12.39 has order and pt to schedule. Screening for malignant neoplasm of colon 173655614 Z12.11 2014 [place], [place]. Mother with colon cancer.Hero eduled for July 25, 2023. Adult heal th examination 286026319 Z00.00 Encouraged well balanced meals, active lifestyle, and routine vision and dental appt. [id number] Manfred Burch MD [facility] [address] [address] 06/27/2023 10:58:38 06/27/2023 11:38:42 Sore throat 396570690 J02.9 Bronchitis 79789250 J40 Nasal congestion 4793193 0 R09.81 [id number] AMANDA Sharp [facility] [address] [address] 08/18/2024 14:38:08 08/18/2024 15:32:45 Adult health examination 491315019 Z00.00 Discussed health maintenanc eDiscussed healthy diet and exerciseAn nual labs offered, pt declines Screening mammography 24 652843 Z12.31 Screening for malignant neoplasm of colon 491296845 Z12.11 Hypothyroidism 39441287 E03.9 Prediabetes 708030027 R7 3.03 Health Concerns Section Related Observation LastModified by Organization Detai ls LastModified Time None Recorded Concern Status LastModified by Organization Details LastModified Time None Recorded Advance Directives Directive Y: Payers Encounter Date Sequence Insurance Name Policy Number Policy German Covered Member ID German Member ID Guarantor Name 03/20/2023 1 [facility] B[facility]AN (PPO) [id number] Kadi Aguilar [id number] OI Kadi Gleason 05/01/2023 1 [facility] BENEFITS PLAN (PPO) [id number] Kadi Aguilar [id number] OI Kadi Gleason 06/14/2023 1 [place] [id number] Kadi Jeffersseon [id number] AB Kadi Jeffersselton 06/27/2023 1 *SELF PAY* Sh adriana Jeffersselton 08/18/2024 1 [facility] [id number] Kadi Gleason [id number] Kadi Gleason Notes Date Note Type Note Provider Name and Address Organization Details Recorded Time 03/20/2023 text/html Here for skin le immnauel right shoulder.States it was red, scaly, and angry looking. Not sure if it fell off with scratching, but looks better, however still kept this appt for eval.Did not always wear sunscreen, fair skin, father skin cancer. Did not get mammogram done as previously ordered.Due for labs to be done.Colonoscopy in 2014. mother had colon cancer. Kristen Olivarez NP [address], [address], [place], [address], [employer] 03/20/2023 08:52:44 05/01/2023 text/html Urgent care & ED fuv: Pt was seen at [facility] care last week due to urinary burning and urgency for last 1 week. So pt was put on Cefdinir for 5 days and she was not getting better. So pt was seen at [facility] ED last weekend and they put her on Macrobid for 7 days and pt will be finishing it tomorrow evening. Still c/o urinary urgency and burning. No more fever since yesterday night. Pt [facility] at [facility], they also check the swab for GC/Chlamydia and it was all neg. Denies any other abominal area pain/n/v/c/d/chills. Pt wants me to do pelvic exam for her. Manfred Burch MD [address], [address], [place], [address], [employer] 05/01/2023 13:10:51 06/14/2023 text/html Here for annual check up. UTI 05/01/23- treated with macrobid and phenazopyridine 200 mg. Culture negative for UTI.Referred to urologist. No symptoms since. Has mammogram and colonoscopy ordered/scheduled.Rec ent labs already discussed. Aware of change in thyroid meds and diet changes for chol. Kristen Olivarez NP [address], [place], [address], [employer] 06/14/2023 10:07:30 06/27/2023 text/html ACV: C/o congestion, sore throat, cough, fatigue for last 3-4 days. Pt did baby sitting for her grand kids last weekend and they were sick too. Denies any other concern. Pt is leaving for [place] on this Sat for 1 week trip. Manfred Burch MD [address], [facility] [address], [place], [address], [facility] [employer] [facility] 06/27/2023 11:34:29 08/18/2024 text/html Kadi Gleason is a58 year old female patient here today to establish care. She has a history of hypothyroidism. Last TSH 18.80 11/13/23, she states she is not taking her medication on a regular basis. Has a history of depression. She is taking fluoxetine 40 mg PO daily. She states this is working well Prediabetes, A1C 5.7 06/11/2023 Flu shot: OVID vaccines: x3Tdap: 05/2024Mammogram: orderedColonoscopy: 9 year ago, mother has colon cancer Aracelis Waters, CAN VACUUM TESTER [address], [facility] [address], [place], [address], [facility] [employer] [facility] 08/18/2024 15:21:08 OBGyn Episode No OBEpisode recorded.
--- OUTSIDE RECORDS SUMMARY | 2024-11-19 01:56 | XMS_ITS | Clinical Summary ---
Author Organization [facility] Address [address] [place] [address] Phone Care Team Providers Care Seating And Mobility Technologist Name Role Phone Manfred Burch MD Primary Care Provider [phone] Jaciel Chu APRN, ARCHITECTURAL DRAFTSPERSON Unavailable Allergies No known active allergies Medications levothyroxine (SYNTHROID) 112 MCG Tablet TAKE 1 TABLET(S) EVERY DAY BY ORAL ROUTE. (LAST FILL UNTIL SEEN 06/07/20) 0 Active FLUoxetine (PROZAC) 40 MG Capsule fluoxetine 40 mg capsule TAKE 1 CAPSULE BY MOUTH EVERY DAY Active albuterol 108 (90 Base) MCG/ACT Aerosol Solution take 2 Puffs by inhalation. 2 Active phenazopyridine (PYRIDIUM) 200 MG Tablet TAKE 1 TABLET BY MOUTH EVERY 8 HOURS NEEDED FOR 7 DAYS 3 Active Active Problems No known active problems Social History Tobacco Use Types Packs/Day Years Used Date Smoking Tobacco: Never Smokeless Tobacco: Never Comments No Sex and Gender Information Value Date Recorded Sex Assigned at Not on file Legal Sex Female 2:30 PM CDT Gender Identity Not on file Sexual Orientation Not on file Last Filed Vital Signs Vital Sign Reading Time Taken Comments Blood Pressure 132/88 11/12/2023 9:48 AM MAKING DEPARTMENT PREPARER Pulse 89 11/12/2023 9:48 AM MAKING DEPARTMENT PREPARER Temperature - - Respiratory Rate 18 11/12/2023 9:48 AM MAKING DEPARTMENT PREPARER Oxygen Saturation 99% 11/12/2023 9:48 AM MAKING DEPARTMENT PREPARER Inhaled Oxygen Concentration - - Weight 88.9 kg (196 lb) 11/12/2023 9:48 AM MAKING DEPARTMENT PREPARER Height 157.5 cm (5' 2 ) 11/12/2023 9:48 AM MAKING DEPARTMENT PREPARER Body Mass Index 35.85 11/12/2023 9:48 AM MAKING DEPARTMENT PREPARER Plan of Treatment Health Maintenance Due Date Last Done Comments Hepatitis C Virus (HCV) Screening 1965 TdaP Immunization 1965 Hepatitis B Immunization (1 of 3 - 19+ 3-dose series) 1984 Pap Smear 1986 Cervical Cancer Screening (CCS) 12/23/1995 HPV/Cotest 12/23/1995 Colonoscopy 2010 Colorectal Cancer Screening 2010 Cologuard 12/23/2015 Immunochemical Fecal Occult Blood 12/23/2015 Mammogram 12/23/2015 Pneumococcal Immunization (5 0+ years) (1 of 1 - PCV) 12/23/2015 Zoster Immunization (1 of 2) 12/23/2015 SARS-COV-2 Immunization ( - 2023- season) 2024 09/30/2021, 01/12/2021, 12/20/2020 Respiratory Syncytial Virus (RSV) Immunization (Adult) (1 - 1-dose 75+ series) 2040 Influenza Immunization Completed 06/06/2024 Meningococcal Immunization (ACWY) Aged Out No longer eligible b ased on patient's age to complete this topic Rotavirus Immunization Aged Out No lo nger eligible based on patient's age to complete this topic Insurance [facility] Care Teams Seating And Mobility Technologist Relationship Specialty Start Date End Date Manfred Burch MD [address] [place] [address] PCP - General Family Medicine 05/24/23 Jaciel Chu APRN, ARCHITECTURAL DRAFTSPERSON [address] [place] [address] Nurse Practitioner Advanced Practice Nurse 07/15/23
[2024-11-19 06:29] VITALS: BP 122/88; PULSE 89; RESP 16; TEMP 35.6; O2SAT 95
[2024-11-19] MEDS: LACTATED RINGERS 1,000 ML 150 ML IV CONT (06:40)
--- NOTE | 2024-11-19 07:06 | P.PNAN_ITS ---
Anes - Initial Pre Proc Eval Procedure: Operation Date: 11/19/24 07:30 Proposed Procedures p Colonoscopy - Vinayak Galindo MD Operation Date: 11/19/24 12:30 Proposed Procedures p Colonoscopy - Vinayak Galindo MD Date/Time: 11/19/24 07:06 Surgeon: Vinayak Galindo MD Pre Op Diagnosis: Family Hx of malignant neoplasm of digestive organ Patient Data Age: 58 Gender: F Height: 1.57 m Weight: 94 kg Last Vital Signs Temp 35.6 C L 11/19/24 06:29 Pulse 89 11/19/24 06:29 Resp 16 11/19/24 06:29 BP 122/88 11/19/24 06:29 Pulse Ox 95 11/19/24 06:29 O2 Del Method Room Air 11/19/24 06:29 Allergies Allergy/AdvReac Type Severity Reaction Status Date / Time No Known Allergies Allergy Verified 11/19/24 06:27 Home Medications ?Medication ?Instructions ?Recorded ?Confirmed ?Type fluoxetine 40 mg capsule 40 mg PO DAILY 06/03/23 11/19/24 History levothyroxine 125 mcg tablet 125 mcg PO DAILY 06/03/23 11/19/24 History Patient hx anesthesia problems: none Family hx anesthesia problems: none Results Review: All pre-operative results and documents have been reviewed as part of the pre- operative evaluation. [facility] Past Medical History Medical History (Updated 11/18/24 @ 14:12 by Ploo Serna DO) Anxiety Hypothyroidism XENIA (obstructive sleep apnea) Social History Social History (System 08/21/24 @ 10:47 by Sulma Asher) Smoking packs per day: 0.5 Smoking cigarettes per day: 10.0 Years smoked: 4 Smoking pack-years: 2.00 Smoking status: Former smoker Tobacco type: cigarettes Alcohol intake: current Drinks per week: 1 Living arrangements: with family Spiritual care concerns: No Anes - Eval Final PreProcedure Day of Procedure 11/19/24 07:06 Patient weight: obese Heart: regular rate and rhythm Lungs: clear to auscultation Airway: Mallampati scale class II Neurological: alert and oriented Last oral intake: >/= 8 hours ASA classification: III Emergent: no Anesthetic plan: proceed Anesthesia type and monitoring: general GIVS and standard monitoring Results Review: All pre-operative results and documents have been reviewed as part of the pre- operative evaluation. Informed Consent: The patient's anesthetic plan and its attendant risks and benefits were discussed with the patient/family/POA. Questions were solicited and answers provided to the satisfaction of the patient/family/POA.
--- NOTE | 2024-11-19 07:30 | PM.IMHP ---
H&P: HPI History of Present Illness Date/Time: 11/19/24 07:30 Chief Complaint: Family history of colorectal cancer Narrative: This patient has family history of colorectal cancer. her mother had when she was 70 years old. Review of Systems Review of Systems: All systems reviewed & are unremarkable except as noted in HPI and below PMFSH Past Medical History Medical History (Updated 11/19/24 @ 07:30 by Vinayak Galindo MD) Anxiety Hypothyroidism XENIA (obstructive sleep apnea) Social History Social History (System 08/21/24 @ 10:47 by Sulma Asher) Smoking packs per day: 0.5 Smoking cigarettes per day: 10.0 Years smoked: 4 Smoking pack-years: 2.00 Smoking status: Former smoker Tobacco type: cigarettes Alcohol intake: current Drinks per week: 1 Living arrangements: with family Spiritual care concerns: No Meds Home Medications and Allergies Home Medications ?Medication ?Instructions ?Recorded ?Confirmed ?Type fluoxetine 40 mg capsule 40 mg PO DAILY 06/03/23 11/19/24 History levothyroxine 125 mcg tablet 125 mcg PO DAILY 06/03/23 11/19/24 History Allergies Allergy/AdvReac Type Severity Reaction Status Date / Time No Known Allergies Allergy Verified 11/19/24 06:27 Vital Signs Vital Signs - 24 hr 11/19/24 06:29 Temperature 96.1 F L Pulse Rate 89 Respiratory Rate 16 Blood Pressure 122/88 Pulse Oximetry 95 Oxygen Delivery Room Air Exam Const: General: cooperative and healthy appearing Resp: Effort & Inspection: normal respiratory effort and able to speak in complete sentences Auscultation: clear to auscultation bilaterally Cardio: Rate: regular rate Rhythm: regular rhythm GI: Inspection: normal to inspection GI Palp: No No hepatosplenomegaly present Auscultation: normal bowel sounds Rectal Exam: deferred Skin: General skin exam: normal color Psych: Appearance: grossly normal Mental Status: mental status grossly normal Assessment and Plan Assessment and plan (1) Family history of colorectal cancer: Code(s): Z80.0 - Family history of malignant neoplasm of digestive organs Status: Acute
[2024-11-19] MEDS: SIMETHICONE ORAL SUSPENSION 20 MG/0.3 ML 30 ML BOTTLE 0.6 ML IRRIGATION (07:42)
[2024-11-19 07:50] VITALS: BP 125/86; PULSE 83; RESP 21; O2SAT 97
[2024-11-19 08:00] VITALS: BP 126/77; PULSE 70; RESP 19; O2SAT 99
[2024-11-19 08:10] VITALS: BP 129/87; PULSE 63; RESP 19; O2SAT 99
== END 2024-11-19 08:20 | disposition home or self-care (01) ==
PROVIDERS: Visit Provider Internal Medicine Gastroenterology
PROC: 0DJD8ZZ Inspection of Lower Intestinal Tract, Via Natural or Artificial Opening Endoscopic (ICD-10-PCS; CPT 45378; principal; 2024-11-19 07:30)
DX: Z12.11 Encounter for screening for malignant neoplasm of colon (principal); K57.30 Diverticulosis of large intestine without perforation or abscess without bleeding; E03.9 Hypothyroidism, unspecified; F41.9 Anxiety disorder, unspecified; G47.33 Obstructive sleep apnea (adult) (pediatric); E66.9 Obesity, unspecified; Z68.37 Body mass index [BMI] 37.0-37.9, adult; Z87.891 Personal history of nicotine dependence; Z80.0 Family history of malignant neoplasm of digestive organs
CPT/HCPCS: 45378; J2003; J2704; J7120